=== PATIENT | female | born 1980 | race Caucasian/White ===

== ENCOUNTER 2017-09-10 20:01 | Emergency (ER) | payer OTHER ==
[~2017-09-10] VITALS: Ht 182.8 cm; Wt 108.9 kg
[~2017-09-10 20:01] MED LIST: ANAPROX DS550 MG PO; CIPRO500 MG PO; DIFLUCAN150 MG PO; MEDROL DOSEPAK4 MG PO; PYRIDIUM200 M1 PO; SUBOXONE 12 MG1 EACH SL; VIBRA-TAB100 MG PO
[2017-09-10] MEDS ORDERED: IBU800 MG PO (21:33)
== END 2017-09-10 22:43 | disposition home or self-care (01) ==
LOC: ED 20:01
DX: M79.672 Pain in left foot (principal); F17.200 Nicotine dependence, unspecified, uncomplicated; Z79.899 Other long term (current) drug therapy

== ENCOUNTER → 2021-04-19 | Outpatient (CLI) | payer OTHER ==
[~2021-04-19] MED LIST changes: +IBU800 MG PO
== END | disposition home or self-care (01) ==
LOC: US 16:00
PROVIDERS: ATTEND Obstetrics & Gynecology
DX: N88.8 Other specified noninflammatory disorders of cervix uteri (principal); N92.1 Excessive and frequent menstruation with irregular cycle

== ENCOUNTER 2021-08-13 21:21 | Emergency (ER) | payer OTHER ==
[~2021-08-13] VITALS: Ht 182.8 cm; Wt 108.9 kg
== END 2021-08-14 00:21 | disposition left against medical advice (07) ==
LOC: ED 21:21
DX: R05 Cough (principal); R09.81 Nasal congestion; Z53.21 Procedure and treatment not carried out due to patient leaving prior to being seen by health care provider